=== PATIENT | female | born 1995 | race Caucasian/White ===

== ENCOUNTER 2018-06-30 19:44 | Outpatient (CLI) | payer MEDICAID ==
[~2018-06-30] VITALS: Ht 152.4 cm; Wt 56.7 kg
[~2018-06-30 19:44] MED LIST: CIP500 PO; CLIN300C99 PO; DOXY-228 PO; FERR-53 PO; FLUO40CA76 PO; IBUP800T37 PO; LOR5/325 PO; NOR5/325 PO; ONDA4TAB9 PO; PER PO; PREN-127 PO; PRO25 PO
[2018-06-30] MEDS ORDERED: ACETAMINOPHEN 500 MG TAB PO ONE (20:20)
[2018-06-30 20:45] VITALS: Ht 152.4 cm; Wt 56.7 kg
== END 2018-06-30 21:15 | disposition home or self-care (01) ==
LOC: L&D 19:44 → UNDOADMIN 19:44 → OB 19:44 → UNDODISIN 21:15 → L&D 21:15 → EDSTATUS 07-01 16:09
PROVIDERS: ATTEND Student in an Organized Health Care Education/Training Program
DX: O47.02 False labor before 37 completed weeks of gestation, second trimester (principal); Z3A.21 21 weeks gestation of pregnancy
CPT/HCPCS: 59025; 81001; G0463; 99213

== ENCOUNTER 2018-11-11 11:52 | Inpatient (IN) | payer MEDICAID ==
[~2018-11-11] VITALS: Ht 162.6 cm; Wt 64.0 kg
[2018-11-11] MEDS ORDERED: OXYTOCIN 30 UNIT/NS 500 ML 500 ML IV PRN (11:54)
[2018-11-11] MEDS ORDERED: ceFAZolin(*) 2GM/D5W 50ML 50 ML IVPB ONE (11:54)
[2018-11-11] MEDS ORDERED: FAMOTIDINE(*) 20MG/50ML PREMIX 50 ML IVPB PRN (11:54)
[2018-11-11] MEDS ORDERED: LIDOCAINE 1% LOCAL 300 MG/30ML INJ PRN (11:55)
[2018-11-11] MEDS ORDERED: fentaNYL CITR 100 MCG/2 ML AMP IVP PRN (11:55)
[2018-11-11] MEDS ORDERED: METOCLOPRAMIDE 10 MG/2 ML SDV IVP PRN (11:55)
[2018-11-11] MEDS ORDERED: cefOXitin/DEX(*) 2GM/50ML PREM 50 ML IVPB PRN (11:55)
[2018-11-11] MEDS ORDERED: LIDOCAINE/SOD BICARB 8.4% SYR SC PRN (11:55)
[2018-11-11] MEDS ORDERED: FLUSH 10 ML SYR IVP PRN (11:55)
[2018-11-11] MEDS ORDERED: fentaNYL CITR 100 MCG/2 ML AMP IT PRN (12:05)
[2018-11-11] MEDS ORDERED: BUPIVACAINE 0.25% MPF INJ EPI PRN (12:05)
[2018-11-11] MEDS ORDERED: FENTANYL/ROPIVACAINE 100 ML BAG EPI PRN (12:05)
[2018-11-11] MEDS ORDERED: LIDOCAINE/PF 2% 200MG/10ML AMP 200 MG/10 ML AMPUL EPI PRN (12:05)
[2018-11-11] MEDS ORDERED: LIDO/EPI 2% MPF 1:200,000 20ML EPI PRN (12:05)
[2018-11-11] MEDS ORDERED: BUPIVACAINE 0.5% INJ 30ML VIAL EPI PRN (12:05)
[2018-11-11] MEDS ORDERED: PENICILLIN G 5 MILLUN VIAL 5 MIU in NS(*) 0.9% 100 ML MINI-BAG 100 ML IVPB ONE (12:30)
[2018-11-11] MEDS: LR(*) 1000 ML BAG 1,000 ML IV SCH (13:18)
[2018-11-11 13:26] VITALS: BP 128/82; Ht 162.6 cm; Wt 64.0 kg
[2018-11-11 13:35] LABS: PLATELET COUNT, AUTOMATED 240 K/uL (150-450)
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
--- NOTE | 2018-11-11 13:43 | Anesthesia OB Pre-Anes Eval ---
History of Present Illness Anesthesia Start Date: Nov 11, 2018 Anesthesia Start Time: 11:18 (QA AUTOMATION ARCHITECT starts 18 g IV rt forearm 2 attempts. Pt in pain of labor, crying out.) OB Anesthesia Diagnosis: spontaneous labor Current Complication: other (+2 ankle edema., "tweeker packer" around mouth and on right arm. Pt asked about this and did confirm that she has a "bad habit") EDC: Nov 09, 2018 : 4 Para: 1 Pain Ratin Heart Tones: 134 Height (Inches): 64 Weight (Pounds): 125 BMI (kg/m2): 21 Acute pain of Labor. Consent reviewd w mother in room. Medical history from patient, patient's mother and medical chart. Past Medical History Medical History: illicit drug use (opioids, meth) Attended Childbirth Classes?: No Hx Anesthesia Reactions: No Hx Family Anesthesia Reaction: No Home Meds Reported Medications Vits W-Ca,Fe,Fa(<1MG) ( VITAMINS) 1 Each Tablet, 1 EACH PO DAILY, TAB 06/09/16 Allergies: Coded Allergies: No Known Drug Allergies (Unverified , 11/11/18) Anesthesia OB ROS Neurological: No migraines/headaches, No seizures, No neuropathy, No other Eyes ROS: contacts out ENT: Denies Tooth caps, Denies Loose teeth, Denies Chipped teeth, Denies Dentures, Denies Bridges, Denies Retainers, Denies Veneers, Denies Implants, Denies Tongue ring, Denies Other Pulmonary: smoker (pks/day/yrs) Airway Class: ll Cardiovascular ROS: edema GI ROS: clear liquids Last Solids Date: Nov 10, 2018 Last Solids Time: 17:00 ROS: No Herpes, No STD(s), No Liver Disease, No Renal Disease, No Other Endocrine ROS: No diabetes, No gestational diabetes, No thyroid disorder, No other Musculoskeletal ROS: No low back pain, No low back injury, No scoliosis; other (Sacral tattoo clear of planned stick site.) Assessment and Plan Anesthesia Plan: OLGA LIDIA GARCIA CRNA Nov 11, 2018 13:43
--- NOTE | 2018-11-11 13:53 | Procedure Note ---
Anesthetic Placement Note Anesthesia Plan: CSE Permit for Anesthesia Signed: Yes Anesthesia Technique: Patient Sitting Anesthesia Prep: Chlorhexidine (Clear fenestrated drape, traffic stopped. Hats to all personnel. Sterile hand scrub, sterile gloves and mask per aircraft sheet metal mechanic, Time out 1222) Interspace: L 4-5 Local Anesthetic: 1% Lidocaine, 25 Gauge Needle Amount Local - cc's: 2 Anesthesia Needle: 17g Touhy/Schliff Anesthesia Attempts: 1 Loss of Resistance: Normal Saline Depth of NIKO (cm): 4.3 Epidural Needle Placement: No CSF, No Blood, No Parasthesia Intrathecal Needle: 27 Gauge Pencan Cerebral Spinal Fluid: Yes, Clear Catheter Insertion (cm): 3.4 Catheter Type: Bianchi - Spring Wound Epidural Dressing: Tegaderm, Tape Anesthesia Tray: Lot Number ([id number]), Expiration Date (2019-11-04), Reference Number ([id number]) Comment: Patient anxious but cooperative. She was able to get into good position for epidural. Her spinous processes are easily palpated. Anesthesia Medications: Intrathecal Dose: mcg Fentanyl (20), mg Marcaine MPF (1.9), Time (1250) Epidural Test Dose: 1.5 Lido/Epi (1:200,000), Dose - mL (1252), Negative Epidural Infusion: 0.2% Ropivicaine, With Fentanyl 2mcg/ml, Start Time: (1312) Complications: None Comment: Pain level reduce to 3/10 2 minutes after CSE then 0/10 5 minhutes after CSE. OLGA LIDIA KNAPP CRNA Nov 11, 2018 13:53
[2018-11-11] MEDS ORDERED: PENICILLIN G 2.5 MILLUN/100 ML 100 ML IVPB SCH (16:00)
[2018-11-11] MEDS ORDERED: LANOLIN OINT 7 GM TUBE TP PRN (16:50)
[2018-11-11] MEDS ORDERED: INFLUENZA VIRUS VAC 0.5ML SYR IM ONLY ONE (16:50)
[2018-11-11] MEDS ORDERED: GLYCERIN/WITCH HAZEL LEAF 1 PK TP PRN (16:50)
[2018-11-11] MEDS ORDERED: HYDROCORTISONE 2.5% CR 30GM TB PR PRN (16:50)
[2018-11-11] MEDS ORDERED: APAP/HYDROCODONE 325/5 TAB PO PRN (16:50)
[2018-11-11] MEDS ORDERED: BENZOCAINE 20% 60 ML BTL TP PRN (16:50)
[2018-11-11] MEDS ORDERED: MAGNESIUM HYDROXIDE* 30ML UDCP PO PRN (16:50)
--- NOTE | 2018-11-11 16:56 | OB Delivery Note ---
Delivery Note Vaginal Delivery Type: Spont. Vaginal Delivery, Low, Vacuum Delivery Date: Nov 11, 2018 Delivery Time: 16:35 Delivery Anesthesia: Epidural Sex: Male Weight (gms): 2740 Repair Needed: Laceration, Vaginal, 1st Degree Estimated Blood Loss: 100 Delivery Complications: Laceration Notes: Presented in labor and 3 cm. SROM at 1120 and progressed to 6 cm following epidural at 1251. Complete at 1505 and allowed to labor down. Progressive severe variables noted and consent obtained for vacuum assistance. There was excellent descent with cough or valsalva but with active pushing, little progress was being made. Kiwi vacuum applied easily to vtx in +2/3 station. Next contraction and gentle assistance brought baby to and delivery over intact perineum noted. No nuchal and shoulders delivered with a push. Baby followed without further difficulty. Cord clamped and placenta delivered spontaneous and intact. Single left labia laceration at the hymen noted and recieved a single figure 8 stitch with 3-0 Chromic. No complications. State Director in Attendence: No Copies to: KITTY ATKINSON MD ; KITTY ATKINSON MD Nov 11, 2018 16:56
--- NOTE | 2018-11-11 17:46 | Anesthesia Progress Note ---
Progress/Maintenance Anesthesia Note Date: Nov 11, 2018 Anesthesia Note Time: 17:33 Pain Intensity: 0 Pump: Off (Turned off after 2nd degree vaginal tear repair completed at 1645.) Pump Rate (ML/HR): 0 Position: Other (Sitting up in bed) Anesthesia Treatment: Pt delivered at 1635. Pump off at 16 45 Assessment and Plan Anesthesia Plan: CSE Assessment: Active male . Pt is alert and bonding with . Uterus firm stable. Anesthesia Stop Day: Nov 11, 2018 Anesthesia Stop Time: 16:45 Epidural Catheter Removal: Yes, Removed by: (Olga Lidia Aguilar CRNA) Removal Date: Nov 11, 2018 Removal Time: 17:41 Condition Stick site is without redness swelling or drainage. Signs of infection reviewed. Pt agrees to seek medical attention should sx occur. PDPH sx discussed. OLGA LIDIA AGUILAR CRNA Nov 11, 2018 17:46
[2018-11-11] MEDS: IBUPROFEN 800 MG TAB PO SCH (18:41)
[2018-11-11 19:10] VITALS: BP 124/74
[2018-11-11] MEDS: DOCUSATE CALCIUM 240 MG CAP PO SCH (21:00)
[2018-11-12] VITALS: BP 110/66
[2018-11-12] MEDS: IBUPROFEN 800 MG TAB PO SCH ×4 (00:15→21:13)
[2018-11-12 04:06] VITALS: BP 109/72
[2018-11-12] MEDS ORDERED: PENICILLIN G 2.5 MILLUN/100 ML 100 ML IVPB SCH (04:30)
[2018-11-12 07:29] VITALS: BP 121/63
[2018-11-12] MEDS: ACETAMINOPHEN 325 MG TAB PO PRN ×2 (07:36→14:36)
--- NOTE | 2018-11-12 08:30 | OB/GYN Progress Note ---
OB Subjective Progress Notes Subjective Doing well. No complaints. Bleeding normal and pain controlled. GI: NEG Nausea : Voiding Well Pain: Mild OB Objective Physical Exam Vital Signs Date Time Temp Pulse Resp B/P (MAP) Pulse Ox O2 Delivery O2 Flow Rate FiO2 11/12/18 04:06 97.1 85 16 109/72 (84) Room Air 11/11/18 19:10 91 Intake and Output 11/12/18 07:02 Intake Total 2800 ml Output Total 1450 ml Balance 1350 ml Intake Oral 500 ml IV Total 2300 ml Output Urine Total 1450 ml # Voids 2 General Appearance: Alert/Awake/No Acute Distress Neurological: No Gross deficits Respiratory: No Respiratory Distress, Clear to Auscultation Abdomen: Soft, Non-Tender, Non-Distended, Fundus Firm (2 below), Non-Tender Integumentary: Skin Intact without Lesions or Rash Psychological: Alert & Oriented X3, Appropriate Mood & Affect Result Diagram: 11/12/18 0603 Assessment and Plan RN SECURITY Plan: Routine Post- Care Problems: (1) 39 weeks gestation of (2) Normal labor (3) GBS carrier (4) care and examination immediately after delivery Assessment & Plan: Routine care today. Home tomorrow. KITTY ATKINSON MD Nov 12, 2018 08:30
[2018-11-12] MEDS: FERROUS SULFATE 325 MG TAB PO SCH (09:28)
[2018-11-12] MEDS: DOCUSATE CALCIUM 240 MG CAP PO SCH ×2 (09:29→21:13)
[2018-11-12 11:33] VITALS: BP 110/78
--- NOTE | 2018-11-12 13:42 | Anesthesia Post Eval Note ---
Anesthesia Post Eval Note Vital Signs Date Time Temp Pulse Resp B/P (MAP) Pulse Ox O2 Delivery O2 Flow Rate FiO2 11/12/18 11:33 97.9 86 18 110/78 (89) Room Air 11/11/18 19:10 91 Pt able to participate in Eval: Yes Cardiovascular Status: Satisfactory Respiratory Status: Satisfactory Pain Managment: Satisfactory PO Nausea/Vomiting: Satisfactory Temperature Management: Satisfactory Mental Status: Satisfactory, Alert, Oriented X3 Post-Op Hydration Status: Satisfactory, Tolerating PO Well, Voiding w/o Difficulty Anesthesia Type: CSE Anesthesia Tolerance: Pt has been ambulating, eating regular diet and voiding without problem. Her + drug screen is being addressed by her following physician and licensed master social worker are involved. No anesthesia associated complications noted. The CSE stick site is without redness swelling or drainage. OLGA LIDIA KNAPP BRAILLE PROOFREADER Nov 12, 2018 13:42
[2018-11-12 15:25] VITALS: BP 98/59
[2018-11-12] MEDS ORDERED: DIPHTH/TETANUS/ACEL. PERTUSSIS IM ONLY ONE (16:50)
[2018-11-12] MEDS ORDERED: MEASLES,MUMP,RUBELLA VAC 0.5ML SUBQ ONE (16:50)
[2018-11-12 19:50] VITALS: BP 99/58
[2018-11-13] VITALS: BP 119/73
[2018-11-13 07:01] VITALS: BP 113/61
--- NOTE | 2018-11-13 09:18 | OB/GYN Progress Note ---
OB Subjective Progress Notes Subjective Doing well. No problems. GI: NEG Nausea : Voiding Well Pain: Mild OB Objective Physical Exam Vital Signs Date Time Temp Pulse Resp B/P (MAP) Pulse Ox O2 Delivery O2 Flow Rate FiO2 11/13/18 07:01 97.2 77 16 113/61 (78) Room Air 11/11/18 19:10 91 Intake and Output 11/13/18 07:02 Intake Total 1100 ml Balance 1100 ml Intake Oral 1100 ml General Appearance: Alert/Awake/No Acute Distress Neurological: No Gross deficits Cardiovascular: Normal Rhythm & Peripheral Pulses, Regular Rate and Rhythm Respiratory: No Respiratory Distress, Clear to Auscultation Abdomen: Soft, Non-Tender, Non-Distended, Fundus Firm (2 below), Non-Tender Extremities: No Cyanosis,Clubbing or Edema Integumentary: Skin Intact without Lesions or Rash Psychological: Alert & Oriented X3, Appropriate Mood & Affect Result Diagram: 11/12/18 0603 Assessment and Plan 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
[2018-11-13] MEDS ORDERED: IBUP800T37 PO (09:19)
--- NOTE | 2018-11-13 09:20 | OB/GYN Discharge Summary ---
Discharge Summary Reason for Hosp/Final Diag: (1) 39 weeks gestation of (2) Normal labor (3) GBS carrier (4) care and examination immediately after delivery Lates Vital Signs Vital Signs Date Time Temp Pulse Resp B/P (MAP) Pulse Ox O2 Delivery O2 Flow Rate FiO2 11/13/18 07:01 97.2 77 16 113/61 (78) Room Air 11/11/18 19:10 91 Weight (Pounds): 141 Result Diagram: 11/12/1803 Condition: Improved Discharge: Home, Self Residential Meds Active Scripts Ibuprofen (IBUPROFEN) 800 Mg Tablet, 800 MG PO Q8H PRN for PAIN, #20 TAB 0 Refills Prov:KITTY KELLY MD 11/13/18 Reported Medications Vits W-Ca,Fe,Fa(<1MG) ( VITAMINS) 1 Each Tablet, 1 EACH PO DAILY, TAB 06/09/16 Follow up Referrals: HEART DOCTOR - In 6 Weeks @ [facility] with KITTY KELLY MD Follow up with: Dr. Kelly [phone] Follow up in: 6 wks PP or PO Discharge Diet: As Tolerates Discharge Activity: As Tolerates, No Heavy Lifting x 6 wks, No Heavy Lifting > 10lb, Pelvic Rest Copies to: KITTY KELLY MD ; KITTY KELLY MD Nov 13, 2018 09:20
[2018-11-13] MEDS: FERROUS SULFATE 325 MG TAB PO SCH (10:06)
[2018-11-13] MEDS: DOCUSATE CALCIUM 240 MG CAP PO SCH (10:06)
[2018-11-13] MEDS: IBUPROFEN 800 MG TAB PO SCH (10:06)
== END 2018-11-13 10:20 | disposition home or self-care (01) | DRG 807 ==
LOC: OB 11:52
PROVIDERS: ADMIT Obstetrics & Gynecology; ATTEND Obstetrics & Gynecology
PROC: 10D07Z6 Extraction of Products of Conception, Vacuum, Via Natural or Artificial Opening (ICD-10-PCS; principal; 2018-11-11)
PROC: 0HQ9XZZ Repair Perineum Skin, External Approach (ICD-10-PCS; 2018-11-11)
DX: O42.02 Full-term premature rupture of membranes, onset of labor within 24 hours of rupture (principal); Z37.0 Single live birth; O99.820 Streptococcus B carrier state complicating pregnancy; O70.0 First degree perineal laceration during delivery; Z3A.39 39 weeks gestation of pregnancy; Z91.419 Personal history of unspecified adult abuse; Z79.899 Other long term (current) drug therapy
CPT/HCPCS: 36415; 80305; 85025; 85027; 85461; 86850; 86870; 86900; 86901; J2540; J2590; J2791; J7120